=== PATIENT | female | born 1950 | race Caucasian/White ===

== ENCOUNTER 2018-06-15 10:25 | Day surgery (SDC) | payer MEDICARE ==
[~2018-06-15] VITALS: Ht 152.4 cm; Wt 61.2 kg
[~2018-06-15 10:25] MED LIST: BRINTELLIX20 MG PO; Cymbalta20 MG PO; Estradiol1 MG PO; Omeprazole20 M1 PO; Prinivil10 MG PO; SM FISH OIL 1,1 EACH PO; VITAMIN B-121000 MCG PO; VITAMIN D35000 UNI1 PO
== END 2018-06-15 16:48 | disposition home or self-care (01) ==
LOC: ORSCSDS 10:25
PROVIDERS: Orthopaedic Surgery
PROC: 0LS14ZZ Reposition Right Shoulder Tendon, Percutaneous Endoscopic Approach (ICD-10-PCS; principal; 2018-06-15 11:55)
PROC: 0RNJ4ZZ Release Right Shoulder Joint, Percutaneous Endoscopic Approach (ICD-10-PCS; principal; 2018-06-15 11:55)
PROC: 0LQ14ZZ Repair Right Shoulder Tendon, Percutaneous Endoscopic Approach (ICD-10-PCS; principal; 2018-06-15 11:55)
DX: M75.21 Bicipital tendinitis, right shoulder (principal); S46.001A Unspecified injury of muscle(s) and tendon(s) of the rotator cuff of right shoulder, initial encounter; M75.41 Impingement syndrome of right shoulder; I10 Essential (primary) hypertension; F41.8 Other specified anxiety disorders; Z79.899 Other long term (current) drug therapy
CPT/HCPCS: C1713; J0171; J0690; J1100; J2250; J2405; J2765; J3010; J7120

== ENCOUNTER 2019-01-01 11:27 | Day surgery (SDC) | payer MEDICARE ==
[~2019-01-01] VITALS: Ht 152.4 cm; Wt 61.3 kg
== END 2019-01-01 13:28 | disposition home or self-care (01) ==
LOC: ORSCSDS 11:27
PROVIDERS: Internal Medicine Gastroenterology
PROC: 0DBP8ZX Excision of Rectum, Via Natural or Artificial Opening Endoscopic, Diagnostic (ICD-10-PCS; principal; 2019-01-01 13:00)
PROC: 0DBB8ZX Excision of Ileum, Via Natural or Artificial Opening Endoscopic, Diagnostic (ICD-10-PCS; principal; 2019-01-01 13:00)
DX: R19.5 Other fecal abnormalities (principal); K64.8 Other hemorrhoids; K59.00 Constipation, unspecified; I10 Essential (primary) hypertension; F41.8 Other specified anxiety disorders; Z87.891 Personal history of nicotine dependence; Z79.899 Other long term (current) drug therapy
CPT/HCPCS: 88305; J2704; J7120

== ENCOUNTER 2020-08-21 12:09 | Day surgery (SDC) | payer OTHER ==
[~2020-08-21] VITALS: Ht 154.9 cm; Wt 64.7 kg
[~2020-08-21 12:09] MED LIST changes: +ALBU90OI INH; +ALLERCLEAR10 MG PO; +AMLO5 PO; +ATOR20 PO; +BUPR150ER PO; +ESCI20 PO; +FISH OIL 1,2001 EAC1 PO
[2020-08-21] MEDS ORDERED: CLIMARA1 EACH PO (13:19)
--- NOTE | 2020-08-21 14:49 | NUR ---
08/21/20 1449 Ailyn Blanchard PT RESTING ON RECLINER. DENIES ANY PAIN OR NAUSEA. FAMILY AT CHAIR SIDE. PT STATES SHE IS READY TO GO HOME. VITALS WNL.
== END 2020-08-21 14:57 | disposition home or self-care (01) ==
LOC: ORSCSDS 12:09
PROVIDERS: Orthopaedic Surgery
PROC: 0LN80ZZ Release Left Hand Tendon, Open Approach (ICD-10-PCS; principal; 2020-08-21 13:30)
PROC: 01N50ZZ Release Median Nerve, Open Approach (ICD-10-PCS; principal; 2020-08-21 13:30)
DX: G56.02 Carpal tunnel syndrome, left upper limb (principal); M65.312 Trigger thumb, left thumb; M65.332 Trigger finger, left middle finger; I10 Essential (primary) hypertension; F41.8 Other specified anxiety disorders; Z79.899 Other long term (current) drug therapy
CPT/HCPCS: J0690; J2250; J2704; J3010; J7120